=== PATIENT | female | born 1995 | race African-American/Black ===

== ENCOUNTER 2021-03-23 21:55 | Emergency (ER) | payer BC ==
[~2021-03-23] VITALS: Ht 167.6 cm; Wt 61.4 kg
[2021-03-23 22:08] VITALS: TEMP 97.8
[2021-03-23 22:44] LABS: BASO % 0.7 % (0.0-2.0); EOS # 0.2 (0.0-0.7); EOS % 3.1 % (0-4.0); GRAN # 3.4 (1.4-6.5); GRAN % 59.7 % (42.2-75.2); HEMATOCRIT 41.6 % (37.0-47.0); HEMOGLOBIN 13.8 g/dl (12.5-16.0); LYMPH # 1.7 (1.2-3.4); MEAN CELL VOLUME 87 fl (80.0-100.0); MEAN CORPUSCULAR HEMOGLOBIN 29 pg (27.0-31.0); MEAN CORPUSCULAR HGB CONC 33 g/dl (33.0-37.0); MEAN PLATELET VOLUME 9.3 fl (7.4-10.4); MONO # 0.4 (0.1-0.6); MONO % 7.2 % (1.7-9.3); PLATELET COUNT 307 K/mm3 (130-400); REDCELL DISTRIBUTION WIDTH-CV 13.9 % (11.5-14.5)
[2021-03-23 22:59] LABS: ALBUMIN 3.9 gm/dL (3.5-5.0); BILIRUBIN,TOTAL 0.6 mg/dL (0.0-1.0); CALCIUM 8.4 mg/dL (8.4-10.2); CREATININE, serum 0.63 (0.52-1.25); POTASSIUM 3.5 mmol/L (3.4-5.0); TOTAL PROTEIN 7.3 gm/dL (6.4-8.2)
[2021-03-23] MEDS ORDERED: CELEXA10 MG PO (22:59)
[2021-03-23 23:14] LABS: COLLECTION METHOD CLEAN CATCH
[2021-03-23 23:24] LABS: MUCOUS Present /lpf; PH 5 (5-8); URINE APPEARANCE Hazy; URINE BACTERIA None Seen /hpf; URINE BILIRUBIN Negative (NEGATIVE); URINE BLOOD Negative (NEGATIVE); URINE COLOR Yellow; URINE GLUCOSE Negative (NEGATIVE); URINE KETONE Negative (NEGATIVE); URINE LEUKOCYTE ESTERASE 3+ (NEGATIVE); URINE NITRATE Negative (NEGATIVE); URINE PROTEIN(semi-quant) Negative (NEGATIVE); URINE UROBILINOGEN Negative (NEGATIVE)
[2021-03-24] MEDS ORDERED: ZOFRAN ODT4 MG PO
[2021-03-24] MEDS ORDERED: CIPRO 500MG TA500 MG PO
[2021-03-24 00:13] VITALS: BP 129/78; PULSE 84
== END 2021-03-24 00:17 | disposition home or self-care (01) ==
LOC: COL.ER 21:55
PROVIDERS: Emergency Medicine
DX: R19.7 Diarrhea, unspecified (principal); R55 Syncope and collapse; E86.0 Dehydration
CPT/HCPCS: J7030